=== PATIENT | male | born 1960 | race Caucasian/White ===

== ENCOUNTER → 2022-02-22 10:20 | Outpatient (CLI) | payer OTHER, SELFPAY ==
[2022-02-22 11:47] LABS: COVID19 -Nasal RAPID Negative (Negative)
[2022-02-22 12:24] LABS: Prostate Specific Antigen Scrn 1.53 ng/mL (0.1-4.0)
== END ==
PROVIDERS: Urology; PCP Family Medicine; Referring Provider Orthopaedic Surgery Orthopaedic Surgery of the Spine; Visit Provider Orthopaedic Surgery Orthopaedic Surgery of the Spine
DX: Z12.5 Encounter for screening for malignant neoplasm of prostate (principal); Z20.822 Contact with and (suspected) exposure to COVID-19
CPT/HCPCS: 36415; 87635; C9803; G0103

== ENCOUNTER 2022-02-24 07:34 | Day surgery (SDC) | payer OTHER, SELFPAY ==
[2022-02-19 10:48] VITALS: BMI 30.3
[2022-02-24] VITALS (11 sets, daily range): BP systolic 114–142; BP diastolic 74–94; PULSE 62–77; RESP 8–16; TEMP 36–36.7; O2SAT 92–97
--- NOTE | 2022-02-24 | DI.RAD.S_ITS ---
PROCEDURE: XR LUMBAR SPINE 2-3V INDICATIONS: L3-4 MICRO DISECTOMY TECHNIQUE: 2 spot fluoroscopic intraoperative images were acquired. COMPARISON: [facility], MR, MR LUMBAR SPINE WITHOUT CONTRAST, 12/24/2021, 18:16. FINDINGS: Spot fluoroscopic images demonstrate surgical hardware at the L3-4 disc space level on the left, as labeled on the images. IMPRESSION: Surgical hardware seen at the L3-4 disc space level. Approved by: Miguelito Jurado M.D. on 02/24/2022 at 11:32
[2022-02-24] MEDS: LACTATED RINGERS 1,000 ML 120 ML IV (08:24)
--- NOTE | 2022-02-24 08:41 | PM.PREOP ---
Pre-operative Note COVID-19 COVID-19 status: Negative Result date/Date tested (Pos, Neg/Pending): 02/23/22 Criteria for continued procedure: Expected advancement of disease process, Possibility delay results in more complex future surgery or treatment, Increased loss of function, Continuing or worsening of significant or severe pain, Deterioration of the patient's condition or overall health and Delay expected to result in less-positive ultimate med/surg outcome Interval Note History & Physical reviewed/Exam performed by Physician: Yes Changes to H&P: No
[2022-02-24] MEDS: CEFAZOLIN 2 GM/100 ML PREMIX 100 ML IV (08:45)
--- NOTE | 2022-02-24 09:24 | SUR.OPER ---
Prone on spine table, head in foam head support, padded chest and pelvic supports, gel pad at knees, lower legs supported by pillows; nipples, genitalia and toes free of pressure, arms secured on foam padded arm boards at <90 degrees abduction. Tape over blanket at thigh secured to table.
[2022-02-24] MEDS: BUPIVACAINE 0.25% (PF) 30 ML, EPINEPHrine 0.15 MG INJ (09:37)
--- NOTE | 2022-02-24 09:52 | P.OP_ITS ---
Operative Date/Time/Diagnoses Date of procedure: 02/24/22 Time of procedure: 08:45 Pre-op diagnosis: 1. L3-4 spinal stenosis with radiculopathy 2. L3-4 foramen stenosis Post-op diagnosis: same Procedure & Clinicians Procedure: 1. L3-4 left hemilaminectomy and microdiscectomy 2. Utilization of microsurgical technique and operating microscope Same procedure as scheduled: Yes Indications: Patient has been having chronic back pain and worsening lumbar radiculopathy. Patient failed multiple conservative management with worsening pain weakness and numbness in his lower extremity. Patient has been having difficulty performing activity of daily living. After discussing risks benefits of treatment options, patient elected proceed with surgery. Surgeon: Pavan Vivas Program Director Scouting: Rach Leo Click Yes if Unassisted: No Anesthesia Type: General Operative Notes Closure Type: primary Specimen(s): none sent Estimated Blood Loss (mL): 5 Blood products transfused: none Procedure in detail: Patient was seen in the preoperative area. Risks and benefits of the surgery was discussed with the patient. Informed consent was obtained from the patient and placed in the chart. Surgical site was marked. Patient was taken to the operative room. General anesthesia was administered. Prophylactic antibiotic was given to the patient less than 30 min before the incision was made. Patient was placed into a prone position on the Tam table. Patient's back was then prepped and draped in the sterile fashion. Time-out was performed at this time. Using AP and lateral C-arm imaging the interval between L3-4 was identified and marked on patient's back. A 1 inch incision 1 in from midline was made on the left side. The fascia was incised in line with skin incision. Globus MARS retractors was placed inside the incision and docked onto the L3 lamina. Using microsurgical technique and operating microscope, a L3 laminotomy was performed using a Kerrison rongeur. Liagamentum flavum was resected at the site of the laminotomy. The disc space at L3-4 was identified. Microdiscectomy was performed by incising the annulus with #11 blade. Microcurettes and pituitary was used to removed herniated disc fragments of disc from the epidural space. After the microdiskectomy was completed, the area medial lateral superior and inferior to the area of the microdiskectomy was inspected and explored using a micro curette. No other impinging structure was identified. The wound was then irrigated with sterile normal saline. 40 mg Depo-Medrol was placed into the epidural space. The deep fascia was closed with 1-0 Vicryl. The subcutaneous tissue was closed with 2-0 Vicryl. The skin was closed with skin chele. Patient tolerated the procedure well. There were no complications. Patient was transferred recovery room in stable condition. Complications: none Post-operative Condition: stable Disposition: PACU Plan for aftercare: Discharge to home
== END 2022-02-24 11:38 | disposition home or self-care (01) ==
PROVIDERS: PCP Family Medicine; Referring Provider Orthopaedic Surgery Orthopaedic Surgery of the Spine; Visit Provider Orthopaedic Surgery Orthopaedic Surgery of the Spine
PROC: (CPT 63047; principal; 2022-02-24 08:45)
DX: M48.061 Spinal stenosis, lumbar region without neurogenic claudication (principal); M51.16 Intervertebral disc disorders with radiculopathy, lumbar region
CPT/HCPCS: 63047; 72100; 76000; J0171; J0690; J1100; J2250; J2704; J2920; J3010

== ENCOUNTER 2023-01-11 06:37 | Day surgery (SDC) | payer OTHER, SELFPAY ==
[2023-01-10 08:26] VITALS: BMI 29.9
[2023-01-11 07:08] VITALS: BP 145/92; PULSE 71; RESP 16; TEMP 36.2; O2SAT 95; BMI 29.5
[2023-01-11] MEDS: LACTATED RINGERS 1,000 ML 21 ML IV (07:14)
--- NOTE | 2023-01-11 07:37 | PM.PREOP ---
Pre-operative Note COVID-19 COVID-19 status: Not tested Criteria for continued procedure: Non-surgical alternatives not available or appropriate per current SOC Interval Note History & Physical reviewed/Exam performed by Physician: Yes Changes to H&P: No
[2023-01-11] MEDS: CEFAZOLIN 2 GM/100 ML PREMIX 100 ML IV (07:50)
--- NOTE | 2023-01-11 08:05 | SUR.OPER ---
Lithotomy on padded OR bed, head on pillow, arms secured on padded arm boards at <90 degrees abduction. Legs secured in padded yellow fins stirrups.
--- NOTE | 2023-01-11 08:53 | PM.OP.1 ---
Procedure & Clinicians Procedure: Photo vaporization of prostate Same procedure as scheduled: Yes Indications: This 62-year-old male presented with worsening lower urinary tract symptoms including outlet obstruction decreased flow urgency hesitancy intermittency of stream incomplete emptying of bladder he had tried medical therapy and found that this was not working and has elected photo vaporization of the prostate presents at this time for that procedure. Surgeon: Sawyer Hill Click Yes if Unassisted: Yes Anesthesia Type: General Operative Notes Findings: Findings: Urethral meatus is normal urethra is normal along its length with normal mucosa sphincter as well coapted. 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 Ureteral orifices in normal position with clear efflux. The bladder exhibits severe trabeculation cellules with normal mucosa no papillary lesions no evidence of malignancy no stones or fistula. At the end of the procedure the prostatic fossa was widely patent and open. This was after the application of 160,171 joules. The patient had a vigorous stream with a full bladder as the scope was removed. The ureteral orifices were intact and unscathed at the end of the procedure. The 22 Yoruba 5 cc Weaver catheter was left in place with 14 cc in the balloon. No other abnormalities or remarkable findings were noted. Closure Type: not applicable Specimen(s): none sent Applied: catheter (Twenty-two Yoruba [address] Weaver catheter with 14 cc in the balloon.) Estimated Blood Loss (mL): 5 Blood products transfused: none Procedure in detail: Procedure in detail: After informed consent was obtained, the patient was identified and brought to the operating room where he was placed in a supine position on the operative table. Once on the table anesthesia was induced and maintained. Ensuring an adequate level of anesthesia the patient was transitioned to the lithotomy position where he was prepped, draped and prepared for Transurethral procedure. After prepping, draping coming ensuring an adequate level of anesthesia and time-out the laser resectoscope was inserted through the urethra prostate and in the bladder under direct patient's cystoscopy was performed ureteral orifices were identified and landmarks of the prostate were once again revisited. The laser fiber was then inserted and using the laser the lateral lobes were marked at the level of the verumontanum this was the distal most extent of resection. Then flow channels were created on either side of the median lobe from the bladder neck to the verumontanum. These were extended down in proximity to the surgical capsule. The median lobe was undermined and then vaporized removing it completely. Attention was then turned to the lateral lobes. Again the distal extent of the resection was noted at the level of the verumontanum. And on each lateral lobe going from the bladder neck to this incision in the prostate another channel was made. The hypertrophied adenoma was then vaporized from the bladder neck to the verumontanum right and left till the prostatic fossa was open and widely patent. Again this took a total of 160,171 joules. At this point the bladder was filled scope was removed and a vigorous stream was noted. The 22 Yoruba catheter was then passed through the urethra prostate and in the bladder the balloon filled with 14 cc of sterile water and was placed to gravity drainage this insertion was without resistance or difficulty. There were no complications the patient tolerated the procedure well at at this point was awakened to be transferred to the postanesthesia care unit with the Weaver catheter to gravity drainage. There were no complications Complications: none Post-operative Condition: stable Disposition: PACU Plan for aftercare: Patient to be discharged to home with Weaver catheter to follow up my office in the morning for Weaver catheter removal.
[2023-01-11 08:56] VITALS: BP 144/98; PULSE 68; RESP 10; TEMP 36.2; O2SAT 95
[2023-01-11 09:00] VITALS: BP 115/70; PULSE 62; RESP 10; O2SAT 95
[2023-01-11 09:05] VITALS: BP 120/96; PULSE 62; RESP 12; O2SAT 94
[2023-01-11 09:10] VITALS: BP 123/69; PULSE 60; RESP 10; TEMP 36.1; O2SAT 96
[2023-01-11 09:19] VITALS: BP 143/92; PULSE 60; RESP 10; O2SAT 96
[2023-01-11] MEDS: PHENAZOPYRIDINE 100 MG TABLET 200 MG PO (09:24)
[2023-01-11] MEDS: OXYBUTYNIN 5 MG TABLET PO (09:24)
== END 2023-01-11 09:54 | disposition home or self-care (01) ==
PROVIDERS: PCP Family Medicine; Referring Provider Urology; Visit Provider Urology
PROC: (CPT 52648; principal; 2023-01-11 07:45)
DX: N40.1 Benign prostatic hyperplasia with lower urinary tract symptoms (principal); R33.8 Other retention of urine; N32.0 Bladder-neck obstruction; R39.15 Urgency of urination; R39.198 Other difficulties with micturition
CPT/HCPCS: 52648; J0690; J1100; J2405; J2704; J3010

== ENCOUNTER → 2023-02-04 08:19 | Outpatient (CLI) | payer OTHER, SELFPAY ==
[2023-02-04 08:54] LABS: Appearance Urine UA CLEAR; Bilirubin Urine UA NEGATIVE (NEGATIVE); Color Urine UA YELLOW; Glucose Urine UA NEGATIVE (Negative); Ketones Urine UA NEGATIVE (NEGATIVE); Leukocyte Esterase Urine UA 2+ (NEGATIVE); Nitrite Urine UA NEGATIVE (Negative); Occult Blood Urine UA 3+ (Negative); Protein Urine UA TRACE (Negative); Urobilinogen Urine UA 0.2 E.U./dL (0.2); pH Urine UA 5.5 (4.5-8.0)
[2023-02-04 09:00] LABS: Bacteria Urine Few (2-10); Culture Indicated Urine Specimen Cultured; RBC Urine 10-30/HPF (0-5/HPF); Squamous Epithelial Cell Urine 0-1 /HPF (0-5/HPF); WBC Urine 10-30/HPF (0-5/HPF)
== END ==
PROVIDERS: PCP Family Medicine; Visit Provider Urology
DX: R30.0 Dysuria (principal); N40.1 Benign prostatic hyperplasia with lower urinary tract symptoms; R33.9 Retention of urine, unspecified; N39.43 Post-void dribbling; R39.15 Urgency of urination; Z90.79 Acquired absence of other genital organ(s)
CPT/HCPCS: 51798; 81001; 81002; 87086

== ENCOUNTER → 2023-03-04 08:04 | Outpatient (CLI) | payer OTHER, SELFPAY | PROVIDERS: PCP Family Medicine; Visit Provider Urology | DX: N40.1 Benign prostatic hyperplasia with lower urinary tract symptoms (principal); N39.43 Post-void dribbling; R33.9 Retention of urine, unspecified; R39.13 Splitting of urinary stream; R39.15 Urgency of urination; Z90.79 Acquired absence of other genital organ(s) | CPT/HCPCS: 51798; 81002; 87086 ==

== ENCOUNTER → 2023-05-12 07:06 | Outpatient (CLI) | payer OTHER, SELFPAY ==
[2023-05-12 07:49] LABS: Add Manual Diff / Slide Review NO; Basophils Absolute Auto 100 /uL (0-100); Basophils Percent Auto 2.4 % (0-2); Eosinophils Absolute Auto 800 /uL (0-450); Eosinophils Percent Auto 16.5 % (2-4); Hemoglobin 16.4 g/dL (13.5-17.5); Lymphocytes Absolute Auto 1100 /uL (1100-4500); Mean Corpuscular HGB Conc 34.8 % (30-36); Mean Corpuscular Hemoglobin 31.8 PG (26-34); Mean Corpuscular Volume 91.2 fL (80-100); Monocytes Absolute Auto 600 /uL (0-900); Monocytes Percent Auto 12.6 % (3-14); Neutrophils Absolute Auto 2300 /uL (1500-7000); Neutrophils Percent Auto 46.5 % (50-75); Platelet Count 264 X10^3/uL (150-400); Red Blood Cell Count 5.16 X10^6/uL (4.5-5.9); Red Cell Distribution Width 14.1 % (11.6-14.8); White Blood Cell Count 4.9 X10^3/uL (4.5-11.0)
[2023-05-12 08:11] LABS: Alanine Aminotransferase 42 IU/L (<50); Albumin 4.1 g/dL (3.5-5.0); Albumin Globulin Ratio 1.4 (1.0-2.8); Alkaline Phosphatase 54 U/L (38-126); Aspartate Aminotransferase 37 IU/L (17-59); BUN Creatinine Ratio 23.6 (6-22); Bilirubin Total 0.9 mg/dL (0.2-1.3); Blood Urea Nitrogen 21 mg/dL (9-20); Calcium 9.6 mg/dL (8.4-10.2); Carbon Dioxide 23 mmol/L (22-32); Chloride 103 mmol/L (98-107); Cholesterol 206 mg/dL (140-199); Estimated Glomerular Filt Rate > 60 mL/min (>60); Glucose 90 mg/dL (80-110); HDL Cholesterol 42 mg/dL (40-60); HEMOLYSIS < 15 (0-50); LDL Cholesterol Calculated 148 mg/dL (<100); Potassium 4.3 mmol/L (3.4-5.1); Sodium 136 mmol/L (137-145); Total Protein 7.1 g/dL (6.3-8.2); Triglycerides 78 mg/dL (35-150)
[2023-05-12 08:30] LABS: Free T3, Triiodothyronine Free 4.87 pg/mL (2.77-5.27); Free T4, Direct Thyroxine 1.51 ng/dL (0.78-2.19)
[2023-05-12 08:43] LABS: Thyroid Stimulating Hormone 1.57 uIU/mL (0.47-4.68)
[2023-05-12 08:44] LABS: Prostate Specific Antigen Scrn 2.24 ng/mL (0.1-4.0)
[2023-05-12 08:46] LABS: Estradiol, Total 34.4 pg/mL
[2023-05-12 09:16] LABS: Folate 13.1 ng/mL (2.76-20.0); Vitamin B12 650 pg/mL (239-931)
[2023-05-13 11:10] LABS: Sex Hormone Binding Globulin 51.3 nmol/L (19.3-76.4)
[2023-05-13 14:51] LABS: Dehydroepiandrosterone Sulfate 55.1 ug/dL (48.9-344.2)
[2023-05-13 18:18] LABS: Anti Thyroglobulin Antibody <1.0 IU/mL (0.0-0.9); Thyroid Peroxidase Antibodies <9 IU/mL (0-34)
[2023-05-14 15:37] LABS: Testosterone,Free 11.5 pg/mL (6.6-18.1)
[2023-05-18 06:11] LABS: Pregnenolone 17 ng/dL (.)
[2023-05-18 09:15] LABS: Testosterone, Total 495.7
== END ==
PROVIDERS: PCP Family Medicine; Referring Provider Urology; Visit Provider Urology
DX: Z13.29 Encounter for screening for other suspected endocrine disorder (principal); R53.83 Other fatigue; G47.9 Sleep disorder, unspecified; N50.89 Other specified disorders of the male genital organs; Z12.5 Encounter for screening for malignant neoplasm of prostate
CPT/HCPCS: 36415; 80053; 80061; 82607; 82627; 82670; 82746; 84140; 84270; 84402; 84403; 84436; 84439; 84443; 84481; 85025; 86376; 86800; G0103